=== PATIENT | male | born 1985 | race Two or more races ===

== ENCOUNTER 2020-04-13 16:25 | Emergency (ER) | payer SELFPAY ==
[~2020-04-13] VITALS: Ht 160 cm; Wt 81.2 kg
--- NOTE | 2020-04-13 17:22 | NUR ---
TASK RN: DR VIDAL AT BEDSIDE, PT ASSESSMENT, POC DISCUSSED AND QUESTIONS ANSWERED. ORDERS REC'D. PIV EST AND LABS DRAWN, URINE AND BLOOD SENT TO LAB. PT VSS, CALL LIGHT W/I REACH. NAD NOTED. AT BEDSIDE.
[2020-04-13] MEDS ORDERED: ONDANSETRON 2MG/ML, 2ML ONE (17:26)
[2020-04-13] MEDS ORDERED: KETOROLAC 30 MG/1 ML ONE (17:26)
[2020-04-13] MEDS ORDERED: ONDANSETRON 2MG/ML, 2ML IVPush ONE (17:30)
[2020-04-13] MEDS ORDERED: KETOROLAC 30 MG/1 ML IVPush ONE (17:30)
--- NOTE | 2020-04-13 17:30 | NUR ---
TASK RN: PT MED NOTED FOR PAIN 06/02. PT TO CT WITH TECH TRANSPORT.
[2020-04-13 17:40] LABS: BASOPHILS % (AUTO) 0 % (0-1); EOSINOPHILS % (AUTO) 5 % (1-7); LYMPHOCYTES % (AUTO) 18 % (22-44); MD NO; MEAN CORPUSCULAR HEMOGLOBIN 29.6 pg (27.5-34.5); MEAN CORPUSCULAR HGB CONC 34.4 g/dL (33.2-36.2); MEAN PLATELET VOLUME 8.3 fL (7.4-10.4); MONOCYTES % (AUTO) 5 % (2-9); NEUTROPHILS % (AUTO) 72 % (42-75); PLATELET COUNT 265 x10^3/uL (130-400); RED BLOOD COUNT 5.55 x10^6/uL (4.38-5.82); RED CELL DISTRIBUTION WIDTH 13.2 % (9.4-14.8)
[2020-04-13 17:41] LABS: MICROSCOPIC INDICATED
[2020-04-13 17:48] LABS: ALANINE AMINOTRANSFERASE 43 U/L (12-78); ALBUMIN 3.8 g/dL (3.4-5.0); ANION GAP 6 mmol/L (5-15); CHLORIDE 108 mmol/L (98-107); CREATININE 1.19 mg/dL (0.7-1.3)
[2020-04-13 17:50] LABS: ALKALINE PHOSPHATASE 126 U/L (45-117); BILIRUBIN,TOTAL 0.4 mg/dL (0.2-1.0); TOTAL PROTEIN 7.6 g/dL (6.4-8.2)
--- NOTE | 2020-04-13 17:57 | NUR ---
TASK RN: PT RTD FROM CT, VSS, PAIN NOW 04/04. CALL LIGHT W/I REACH, CT RESULTS PENDING
--- NOTE | 2020-04-13 18:25 | NUR ---
TEST RESULTED, CHART UP FOR RECHECK.
--- NOTE | 2020-04-13 18:29 | NUR ---
PT BACK FROM IMAGINING, VITALS STABLE, STATES PAIN IS NOW 0/10, FAMILY AT BEDSIDE. WAITING FOR RESULTS.
[2020-04-13 18:50] VITALS: BP 112/68
[2020-04-13] MEDS ORDERED: HALOPERIDOL 5 MG/ML IV ONE (19:00)
== END 2020-04-13 18:53 | disposition home or self-care (01) ==
LOC: ED 17:19
DX: N20.1 Calculus of ureter (principal)
CPT/HCPCS: 36415; 74176; 80053; 81001; 85025; 96374; 96375; 99284; J1885; J2405